=== PATIENT | female | born 1985 | race Caucasian/White ===

== ENCOUNTER 2021-02-04 08:36 | Day surgery (SDC) | payer BC, OTHER ==
[~2021-02-04] VITALS: Ht 160 cm; Wt 68.1 kg
[~2021-02-04 08:36] MED LIST: BUPIVACAINE/PF 0.5% ONE; EPINEPHRINE 1 MG/ML, 1ML ONE; MULT-658 PO
[2021-02-04 09:44] VITALS: BP 101/65
[2021-02-04] MEDS ORDERED: PROMETHAZINE 25 MG/ML, 1ML IVPush PRN (10:00)
[2021-02-04] MEDS ORDERED: LACTATED RINGERS 1,000 ML IV SCH (10:00)
[2021-02-04] MEDS ORDERED: LORazepam 2 MG/ML, 1ML IVPush PRN (10:00)
[2021-02-04] MEDS ORDERED: ONDANSETRON 2MG/ML, 2ML IVPush PRN ×2 (10:00→12:30)
[2021-02-04] MEDS ORDERED: MEPERIDINE/PF 25MG/0.5ML IVPush PRN (10:00)
[2021-02-04] MEDS ORDERED: CHLORHEXIDINE 15 ML UDC PO ONE (10:00)
[2021-02-04] MEDS ORDERED: OXYcodone 5 MG/5 ML ORAL.SOL UDC PO PRN ×2 (10:00→12:30)
[2021-02-04] MEDS ORDERED: METHOCARBAMOL 1,000 MG in DEXTROSE 5% 100 ML IV PRN (10:00)
[2021-02-04] MEDS ORDERED: EPHEDRINE 50 MG/ML, 1ML IVPush PRN (10:00)
[2021-02-04] MEDS ORDERED: ACETAMINOPHEN 325 MG TABLET PO PRN ×2 (10:00→12:30)
[2021-02-04] MEDS ORDERED: hydrALAzine 20 MG/ML, 1ML IV PRN (10:00)
[2021-02-04] MEDS ORDERED: HYDROmorphone 1 MG/ML, 1ML INJ IVPush PRN (10:00)
[2021-02-04] MEDS ORDERED: FENTANYL PF 100 MCG/2ML IV PRN (10:00)
[2021-02-04] MEDS ORDERED: LABETALOL 5MG/ML, 20ML IV PRN (10:00)
[2021-02-04 10:03] LABS: HCG UR SG 1.023 (1.003-1.030)
[2021-02-04] MEDS ORDERED: ONDANSETRON 2MG/ML, 2ML ONE (10:55)
[2021-02-04] MEDS ORDERED: CEFAZOLIN 1,000 MG ONE (10:55)
[2021-02-04] MEDS ORDERED: DEXAMETHASONE 4 MG/ML, 1ML ONE (10:55)
[2021-02-04] MEDS ORDERED: FENTANYL PF 100 MCG/2ML ONE ×3 (11:04→12:03)
[2021-02-04] MEDS ORDERED: MIDAZOLAM 1 MG/ML, 2ML ONE (11:04)
[2021-02-04] MEDS ORDERED: PROPOFOL 50 ML ONE ×2 (11:04→11:18)
[2021-02-04] MEDS ORDERED: MEPERIDINE/PF 50 MG/ML ONE (11:15)
[2021-02-04] MEDS ORDERED: HYDROmorphone 1 MG/ML, 1ML INJ ONE (11:21)
[2021-02-04] MEDS ORDERED: OXYcodone 5 MG/5 ML ORAL.SOL UDC ONE ×2 (12:03→12:17)
[2021-02-04] MEDS ORDERED: TRAM50TA2 PO (12:20)
[2021-02-04] MEDS ORDERED: PROMETHAZINE 25 MG/ML, 1ML IM PRN (12:30)
[2021-02-04] MEDS ORDERED: KETOROLAC 30 MG/1 ML IVPush SCH (12:30)
[2021-02-04] MEDS ORDERED: morphine SULFATE 10 MG/ML, 1ML IVPush PRN (12:30)
== END 2021-02-04 15:10 | disposition home or self-care (01) ==
LOC: OUT 08:36
PROVIDERS: ATTEND Orthopaedic Surgery
DX: T84.84XA Pain due to internal orthopedic prosthetic devices, implants and grafts, initial encounter (principal); Z20.822 Contact with and (suspected) exposure to COVID-19; Y83.8 Other surgical procedures as the cause of abnormal reaction of the patient, or of later complication, without mention of misadventure at the time of the procedure
CPT/HCPCS: 20680; 73590; 81025; J0171; J0690; J1100; J1170; J2175; J2250; J2405; J2704; J3010; J7120; U0003; 76000